=== PATIENT | female | born 1960 | race Caucasian/White ===

== ENCOUNTER 2020-06-19 10:05 | Emergency (ER) | payer MEDICARE, MEDICAID, SELFPAY ==
[2020-06-19 11:03] VITALS: BP 182/84; PULSE 83; RESP 17; TEMP 36.4; O2SAT 96; BMI 30.2
--- NOTE | 2020-06-19 11:10 | ECG_ITS ---
Test Reason : EDEMA Blood Pressure : / mmHG Vent. Rate : 077 BPM Atrial Rate : 077 BPM P-R Int : 152 ms QRS Dur : 090 ms QT Int : 392 ms P-R-T Axes : 043 -16 001 degrees QTc Int : 443 ms Normal sinus rhythm Possible Left atrial enlargement Left axis deviation Borderline ECG No previous ECGs available Referred By: Chasity Hancock Electronically Signed By:LINDA BOOGIE MD
--- NOTE | 2020-06-19 11:12 | ED_ITS ---
HPI - General Adult General Chief complaint: General Medical Stated complaint: BOTH FEET SWELLING Time Seen by Provider: 06/19/20 10:34 Source: patient Mode of arrival: ambulatory Limitations: no limitations History of Present Illness HPI narrative: 60 yo female with past medical history of HTN, High cholestorol, DM, GERD here with bilateral lower extremity Swelling X1 week. the patient denies any history of this same however when looking at her medication reconciliation she is on Aldactone 25 mg daily. She denies any fevers or chills or redness or pain in lower extremities. No recent travel or history of DVT. She has had some shortness of breath with exertion for the last few days and last evening while lying down she had a single episode of left-sided chest pain which lasted several minutes and resolved on its own. This occurred at rest and was not associated with any exertion, diaphoresis, nausea, vomiting. The patient does have a dry cough which she tells me is chronic for her. She has not tried any compression stockings or elevation. Onset (ago): week(s) Radiation: non-radiation Relieving factors: none Exacerbating factors: none Associated symptoms: denies other symptoms Related Data Allergies Allergy/AdvReac Type Severity Reaction Status Date / Time No Known Allergies Allergy Verified 06/19/20 11:06 [No Known Allergies*] Review of Systems Review of Systems: Yes all other systems are reviewed and are negative Constitutional: Constitutional: Reports no additional constitutional complaints, Denies body ache(s), Denies chills, Denies fever(s), Denies headache(s) and Denies weakness Eyes: Eyes: Reports no additional eye complaints and Denies change in vision ENT: Reports system reviewed and no additional complaints, except as docum ented, Denies dizziness, Denies headache(s), Denies nasal congestion, Denies nasal discharge and Denies neck pain Cardiovascular: Cardiovascular: Reports no additional cardiovascular complaints, Denies chest pain, Reports chest pain at rest, Denies chest pain with activity, Reports leg edema, Denies dyspnea and Reports dyspnea on exertion Respiratory: Respiratory: Reports no additional respiratory complaints, Denies cough, Denies dyspnea and Reports dyspnea on exertion Gastrointestinal: Gastrointestinal: Reports no additional gastrointestinal complaints, Denies abdominal pain, Denies diarrhea, Denies nausea and Denies vomiting Genitourinary: Genitourinary: Reports no additional female genitourinary complaints and Denies urinary incontinence Musculoskeletal: Musculoskeletal: Reports no additional musculoskeletal complaints, Denies back pain, Denies arthralgias, Denies joint swelling, Denies neck pain, Denies numbness and Denies tingling Integumentary/Breasts: Skin/Breast: Reports system reviewed and no additional complaints, except as docu and Denies rash Neurologic: Reports system reviewed and no additional complaints, except as documented, Denies Abnormal speech present, Denies dizziness, Denies headache(s), Denies numbness, Denies tingling and Denies weakness [facility] Past Medical History Attestation statement: The following information was validated with the patient. Source: old records reviewed, obtained from family and nursing notes reviewed Medical History (Updated 06/19/20 @ 12:48 by Chasity Hancock NP) Diabetes GERD (gastroesophageal reflux disease) High blood pressure High cholesterol Stroke Social History Social History Alcohol intake: unknown Smoking Status: Unknown if ever smoked Use of substances other than those prescribed or required for medical reasons: Unknown Advance Directives: No Advance Directives Information Provided: Yes Physical Exam Vital Signs: Vital Signs: Vital Signs Temp Pulse Resp BP Pulse Ox 06/19/20 14:00 98.9 F 78 16 178/79 H 98 06/19/20 11:03 97.5 F 83 17 182/84 H 96 Body Mass Index 30.2 Const: General: cooperative, healthy appearing, comfortable and no acute distress Orientation/consciousness: patient oriented x3 Limitations: no limitations HENMT: Head: Yes normal to inspection Ears: hearing grossly normal bilat erally General nose exam: Normal external nose present Face and sinus: Yes normal facial exam Mouth: Normal oral and palatal mucosa present Throat: Yes posterior oropharynx normal Eyes: General: appearance normal, both eyes and all related structures Pupils: Equal, round and reactive pupils present Neck: Neck: Yes normal visual inspection Chest: Chest palpation & inspection: normal inspection of the chest Resp: Effort & Inspection: normal respiratory effort Auscultation: clear to auscultation bilaterally Cardio: Rate: regular rate Rhythm: regular rhythm Peripheral pulses: Peripheral pulses 2+ throughout GI: Inspection: Yes normal to inspection Palpation (GI): Soft to palpation and nontender Auscultation: normal bowel sounds Back/Spine/Pelvis: Thoracic/Lumbar Spine: thoracic and lumbar spine normal to inspection Skin: General skin exam: no rashes or lesions noted Neuro: General: patient oriented x3, no focal motor deficits and normal s ensation to monofilament Cranial nerves: Yes Equal, round and reactive pupils present Cognition (Neuro): normal cognition Speech: No Abnormal speech present Gait exam (Neuro): Normal gait present Motor exam (neuro): 5/5 motor strength present throughout Extrem: Other: Patient has bilateral lower extremity swelling which is 2 plus and pitting and extends to the mid calf. There is no erythema or tenderness on exam. Palpable pulses distally. General: Yes normal to inspection Course Course Course Narrative: Patient is here with lower extremity swelling for the last 1 week. She has had some shortness of breath with exertion and had a single episode of chest pain last evening which was nonexertional. On arrival the patient does have bilateral lower extremity swelling which is pitting. She will need labs including BNP and troponin. Will check chest x-ray, EKG and bilateral lower extremity ultrasound. 1430- Troponin x2 negative. All other labs unremarkable including BNP. Renal function at baseline. Chest x-ray, EKG unremarkable. Ultrasound negative for DVT. Likely chronic venous stasis. Recommend patient use compression stockings and elevate lower extremities he continue using her Aldactone home. Close follow-up with primary care doctor. Reviewed worrisome signs and symptoms and when to return to the emergency department. Comfortable discharge home. Medical Decision Making MDM Narrative Medical decision making narrative: Considered CHF, DVT, chronic venous stasis, hypoalbunimemia, ACS 1245- Low concern for CHF with unremarkable chest x-ray and negative BNP. Low concern for DVT with negative ultrasound. Low concern for underlying liver disease with unremarkable LFTs including albumin. Low concern for ACS with unremarkable EKG, atypical chest pain greater than 12 hours and 2 negative troponins. More likely chronic venous stasis. Medical Records Medical records reviewed: Yes I reviewed the patient's medical records. Lab Data Lab results reviewed: Yes I reviewed the patient's lab results. Result diagrams: 06/19/20 11:36 06/19/20 11:37 Labs: Lab Results 06/19/20 06/19/20 06/19/20 Range/Units 11:36 11:37 11:37 WBC 6.8 (4.8-10.8) X10*3/uL RBC 3.49 L (4.20-5.50) X10*6/uL Hgb 10.1 L (12.0-16.0) g/dl Hct 31.5 L (37-47) % MCV 90.3 (80-98) fL MCH 28.9 (27.0-33.0) pg MCHC 32.1 (31.0-35.0) g/dl RDW 14.2 (11.0-16.0) % Plt Count 282 (160-400) X10*3/uL MPV 10.4 (9.4-12.3) fL Immature Gran % (Auto) 0.3 (0.0-0.4) % Neut % (Auto) 65.9 (45-73) % Lymph % (Auto) 25.1 (20-40) % [place] % (Auto) 6.5 (2-11) % Eos % (Auto) 1.8 (0-4) % Baso % (Auto) 0.4 (0-2) % Lymph # (Auto) 1.7 (1.2-4.9) X10*3/uL [place] # (Auto) 0.4 (0.1-1.2) X10*3/uL Eos # (Auto) 0.1 (0.0-0.4) X10*3/uL Baso # (Auto) 0.0 (0.0-0.2) X10*3/uL Abs Immat Gran (auto) 0.02 (0.00-0.03) X10*3/uL Absolute Neuts (auto) 4.5 (2.0-8.3) X10*3/uL Absolute Nucleated RBC 0.000 (0.0-0.012) X10*3/uL Nucleated RBC % (auto) 0.0 (0.0-0.2) /100WBC PT 11.5 (10.8-13.0) SEC INR 1.0 (0.9-1.1) Sodium 134 L (135-145) mmol/L Potassium 4.8 (3.3-5.1) mmol/l Chloride 106 (96-108) mmol/L Carbon Dioxide 20 L (22-29) mmol/L Anion Gap 13 (12-20) BUN 36 H (9-16) mg/dL Creatinine 1.57 H (0.5-1.4) mg/dL Estim Creat Clear Calc 33.8 Estimated GFR 33 Random Glucose 206 H (60-115) mg/dL Calcium 9.3 (8.4-10.2) mg/dL Magnesium 1.9 (1.6-2.6) mg/dL Total Bilirubin 0.3 (0.0-1.0) mg/dL Direct Bilirubin 0.2 (0.0-0.5) mg/dL AST 20 (5-31) U/L ALT 16 (0-31) U/L Alkaline Phosphatase 71 (39-117) U/L Troponin I High Sens (<3.5-17.0) ng/L B-Natriuretic Peptide (<100) pg/mL Total Protein 8.8 H (6.5-8.0) g/dL Albumin 3.8 (3.5-5.0) g/dL 06/19/20 06/19/20 Range/Units 11:37 14:31 WBC (4.8-10.8) X10*3/uL RBC (4.20-5.50) X10*6/uL Hgb (12.0-16.0) g/dl Hct (37-47) % MCV (80-98) fL MCH (27.0-33.0) pg MCHC (31.0-35.0) g/dl RDW (11.0-16.0) % Plt Count (160-400) X10*3/uL MPV (9.4-12.3) fL Immature Gran % (Auto) (0.0-0.4) % Neut % (Auto) (45-73) % Lymph % (Auto) (20-40) % [place] % (Auto) (2-11) % Eos % (Auto) (0-4) % Baso % (Auto) (0-2) % Lymph # (Auto) (1.2-4.9) X10*3/uL [place] # (Auto) (0.1-1.2) X10*3/uL Eos # (Auto) (0.0-0.4) X10*3/uL Baso # (Auto) (0.0-0.2) X10*3/uL Abs Immat Gran (auto) (0.00-0.03) X10*3/uL Absolute Neuts (auto) (2.0-8.3) X10*3/uL Absolute Nucleated RBC (0.0-0.012) X10*3/uL Nucleated RBC % (auto) (0.0-0.2) /100WBC PT (10.8-13.0) SEC INR (0.9-1.1) Sodium (135-145) mmol/L Potassium (3.3-5.1) mmol/l Chloride (96-108) mmol/L Carbon Dioxide (22-29) mmol/L Anion Gap (12-20) BUN (9-16) mg/dL Creatinine (0.5-1.4) mg/dL Estim Creat Clear Calc Estimated GFR Random Glucose (60-115) mg/dL Calcium (8.4-10.2) mg/dL Magnesium (1.6-2.6) mg/dL Total Bilirubin (0.0-1.0) mg/dL Direct Bilirubin (0.0-0.5) mg/dL AST (5-31) U/L ALT (0-31) U/L Alkaline Phosphatase (39-117) U/L Troponin I High Sens 4.2 < 3.5 (<3.5-17.0) ng/L B-Natriuretic Peptide 94 (<100) pg/mL Total Protein (6.5-8.0) g/dL Albumin (3.5-5.0) g/dL Imaging Data Chest x-ray: Attestation: I personally reviewed and interpreted this imaging study as follows: My impression: unremarkable Radiologist's impression: EXAMINATION: XR CHEST CLINICAL INFORMATION: Chest pain and SOB. COMPARISON: None TECHNIQUE: 2 views of the chest were obtained. FINDINGS: The lungs are well-expanded with atelectatic changes in the lingula. Rest the lungs are clear. The heart size and pulmonary vascularity is normal. There is mild spondylosis dorsal spine. No lytic process seen. XR/XR chest 2V IMPRESSION: Atelectatic changes in the lingula. No acute process seen. venous US: Attestation: I personally reviewed and interpreted this imaging study as follows: My impression: negative for DVT Radiologist's impression: EXAMINATION: US VENOUS ULTRASOUND WITH DOPPLER LOWER EXTREMITY, BILATERAL CLINICAL INFORMATION: Bilateral lower extremity swelling; question deep venous thrombosis. COMPARISON: None TECHNIQUE: Ultrasound of the deep veins is performed from the hip to the calf with compression sonography and color and pulse Doppler assessment. Spectral analysis with color-flow imaging is performed. FINDINGS: RIGHT: There is normal venous compression and respiratory variation and augmented flow. The visualized common femoral vein proximal greater saphenous vein, femoral vein, profunda femoral vein, popliteal vein, and the trifurcation region shows no evidence of deep venous thrombosis. There is no significant popliteal fossa cyst. LEFT: There is normal venous compression and respiratory variation and augmented flow. The visualized common femoral vein, proximal greater vein, femoral vein, profunda femoral vein, popliteal vein, and the trifurcation region shows no evidence of deep venous thrombosis. There is no significant popliteal fossa cyst. If the patient's symptoms persist, followup ultrasound in 5 days 7 days might be of value to exclude proximal propagation from a non-visualized calf vein. US/US venous duplex LE BI IMPRESSION: No DVT demonstrated in the bilateral lower extremity. ECG Data Attestation: I personally reviewed and interpreted this ECG as follows: Interpretation: NSR, Normal NC, Normal QRS, Normal ST stegment Discharge Plan Discharge Clinical Impression: Chronic venous stasis Patient Disposition: Home, Self-Care Instructions: Venous Insufficiency (DC) Additional Instructions: Elevated your extremities Wear your compression stocks every single day except when sleeping. Limit salt Continue all your normal medications Close follow-up with your primary care doctor as discussed Referrals: Gasper Helms MD [Primary Care Provider] - 2 days Interventions: ED Discharge Assessment Last Done: 06/19/20 15:35 Discharge Date/Time: 06/19/20 15:38
[2020-06-19 11:45] LABS: MANUAL DIFF FLAG NO
[2020-06-19 11:46] LABS: Basophils Percent Auto 0.4 % (0-2); Eosinophils Absolute Auto 0.1 X10*3/uL (0.0-0.4); Eosinophils Percent Auto 1.8 % (0-4); Hematocrit 31.5 % (37-47); Hemoglobin 10.1 g/dl (12.0-16.0); Imm Gran Abs Auto 0.02 X10*3/uL (0.00-0.03); Imm Gran Pct Auto 0.3 % (0.0-0.4); Lymphocytes Absolute Auto 1.7 X10*3/uL (1.2-4.9); Lymphocytes Percent Auto 25.1 % (20-40); Mean Corpuscular HGB Conc 32.1 g/dl (31.0-35.0); Mean Corpuscular Hemoglobin 28.9 pg (27.0-33.0); Mean Corpuscular Volume 90.3 fL (80-98); Mean Platelet Volume 10.4 fL (9.4-12.3); Monocytes Absolute Auto 0.4 X10*3/uL (0.1-1.2); Monocytes Percent Auto 6.5 % (2-11); Neutrophils Absolute Auto 4.5 X10*3/uL (2.0-8.3); Neutrophils Percent Auto 65.9 % (45-73); Platelet Count 282 X10*3/uL (160-400); Red Blood Count 3.49 X10*6/uL (4.20-5.50); Red Cell Distribution Width 14.2 % (11.0-16.0); White Blood Count 6.8 X10*3/uL (4.8-10.8)
[2020-06-19 11:58] LABS: Prothrombin Time 11.5 SEC (10.8-13.0)
[2020-06-19 12:17] LABS: Alanine Aminotransferase 16 U/L (0-31); Albumin Level 3.8 g/dL (3.5-5.0); Alkaline Phosphatase 71 U/L (39-117); Anion Gap 13 (12-20); Aspartate Amino Transferase 20 U/L (5-31); Bilirubin Direct 0.2 mg/dL (0.0-0.5); Bilirubin Total 0.3 mg/dL (0.0-1.0); Blood Urea Nitrogen 36 mg/dL (9-16); Calcium 9.3 mg/dL (8.4-10.2); Carbon Dioxide 20 mmol/L (22-29); Chloride 106 mmol/L (96-108); Creatinine Clr Calc Pharmacy 33.8; Estimated Glomerular Filt Rate 33; Glucose Random 206 mg/dL (60-115); Magnesium 1.9 mg/dL (1.6-2.6); Potassium 4.8 mmol/l (3.3-5.1); Sodium 134 mmol/L (135-145); Total Protein 8.8 g/dL (6.5-8.0)
[2020-06-19 12:22] LABS: B Type Natriuretic Peptide 94 pg/mL (<100); Troponin-I High Sensitivity 4.2 ng/L (<3.5-17.0)
[2020-06-19 14:00] VITALS: BP 178/79; PULSE 78; RESP 16; TEMP 37.2; O2SAT 98
[2020-06-19 15:31] LABS: Troponin-I High Sensitivity < 3.5 ng/L (<3.5-17.0)
== END 2020-06-19 15:38 | disposition home or self-care (01) ==
PROVIDERS: Nurse Practitioner Family; Emergency Provider Emergency Medicine; PCP Internal Medicine
DX: I87.8 Other specified disorders of veins (principal); R07.9 Chest pain, unspecified; R06.02 Shortness of breath; I10 Essential (primary) hypertension; E11.9 Type 2 diabetes mellitus without complications
CPT/HCPCS: 36415; 71046; 80048; 80076; 83735; 83880; 84484; 85025; 85610; 93005; 93970; 99284

== ENCOUNTER 2020-11-04 16:36 | Emergency (ER) | payer MEDICARE, MEDICAID, SELFPAY ==
[2020-11-04] VITALS (10 sets, daily range): BP systolic 165–197; BP diastolic 76–89; PULSE 71–90; RESP 12–18; TEMP 36.1–36.8; O2SAT 96–100
--- NOTE | ~2020-11-04 | XR_ITS ---
EXAMINATION: XR CHEST CLINICAL INFORMATION: Cough and congestion COMPARISON: Chest x-ray 06/19/2020 TECHNIQUE: 2 views of the chest were obtained. FINDINGS: Cardiac silhouette is normal in size. The lungs are well aerated. Similar subtle linear opacity of the left lung base is suspected to represent atelectasis. No lobar consolidation is present. No pleural effusion or pneumothorax. Mild degenerative changes of the spine. XR/XR chest 2V IMPRESSION: No acute pulmonary pathology.
[2020-11-04 17:11] LABS: Glucose, Whole Blood > 600 mg/dL (60-115)
[2020-11-04 17:19] LABS: MANUAL DIFF FLAG NO
[2020-11-04 17:20] LABS: Basophils Percent Auto 0.2 % (0-2); Eosinophils Percent Auto 0.5 % (0-4); Hematocrit 32.7 % (37-47); Hemoglobin 10.8 g/dl (12.0-16.0); Imm Gran Abs Auto 0.01 X10*3/uL (0.00-0.03); Imm Gran Pct Auto 0.2 % (0.0-0.4); Lymphocytes Absolute Auto 1.4 X10*3/uL (1.2-4.9); Lymphocytes Percent Auto 35.1 % (20-40); Mean Corpuscular Hemoglobin 29.2 pg (27.0-33.0); Mean Corpuscular Volume 88.4 fL (80-98); Mean Platelet Volume 12.2 fL (9.4-12.3); Monocytes Absolute Auto 0.3 X10*3/uL (0.1-1.2); Monocytes Percent Auto 6.2 % (2-11); Neutrophils Absolute Auto 2.3 X10*3/uL (2.0-8.3); Neutrophils Percent Auto 57.8 % (45-73); Platelet Count 273 X10*3/uL (160-400); Red Cell Distribution Width 13.4 % (11.0-16.0)
--- NOTE | 2020-11-04 17:39 | ED.GENADULT ---
HPI - General Adult General Chief complaint: General Medical Stated complaint: Hyperglycemia Time Seen by Provider: 11/04/20 17:25 Source: patient Mode of arrival: ambulatory Limitations: no limitations History of Present Illness HPI narrative: Patient is a 60-year-old female past medical history of type 2 diabetes, HTN, HLD and hx of prior stroke in 2019 who is complaining of high blood sugars. She states that her blood sugars are usually under good control but does admit that the last few days when she woke up and checked her blood sugar that has been elevated. Today when she got up, her glucometer said it was in the 500s. She also admits to increased urination and thirst and some chest pain yesterday which resolved. She also admits to a slight cough and congestion but denies any COVID contacts or fevers. She denies any headache, dizziness, nausea. vomiting or diarrhea. She states she has been eating her normal foods. Patient states she takes glipizide for her diabetes and did take it this morning, she takes 5 mg amlodipine for her hypertension and she did take it this morning however her blood pressure is currently quite elevated. She also states she took her cholesterol medication, simvastatin, last night. Related Data Allergies Allergy/AdvReac Type Severity Reaction Status Date / Time No Known Allergies Allergy Verified 06/19/20 11:06 [No Known Allergies*] Review of Systems Review of Systems: Yes all other systems are reviewed and are negative [facility] Past Medical History Medical History Diabetes GERD (gastroesophageal reflux disease) High blood pressure High cholesterol Stroke Social History Social History Alcohol intake: unknown Smoking Status: Never smoker Use of substances other than those prescribed or required for medical reasons: No Advance Directives: No Advance Directives Information Provided: Yes Physical Exam Vital Signs: Vital Signs: Last Vital Signs Temp 98.1 F 11/05/20 01:43 Pulse 90 11/05/20 01:57 Resp 17 11/05/20 01:43 BP 167/79 H 11/05/20 02:19 Pulse Ox 98 11/05/20 01:43 Body Mass Index 30.0 Const: General: cooperative, healthy appearing, comfortable and no acute distress Orientation/consciousness: patient oriented x3 Limitations: no limitations HENMT: Head: Yes normal to inspection Eyes: General: appearance normal, both eyes and all related structures Neck: Neck: Yes normal visual inspection, Yes full ROM and Yes supple Resp: Effort & Inspection: normal respiratory effort Auscultation: clear to auscultation bilaterally, no crackles, no rales, no rhonchi and no wheezes Cardio: Rate: regular rate Rhythm: regular rhythm Heart sounds: normal S1 and S2 GI: Inspection: Yes obesity Palpation (GI): Soft to palpation and nontender Auscultation: normal bowel sounds Neuro: General: patient oriented x3 Extrem: General: Yes pedal edema (1+ pitting bilaterally) Course Course Course Narrative: Patient is a 60-year-old female past medical history of type 2 diabetes, HTN, HLD and hx of prior stroke who is complaining of high blood sugars. She states that her blood sugars are usually under good control but does admit that the last few days when she woke up and checked her blood sugar that has been elevated. Patient also admits to a cough and congestion, will get labs, acetone, COVID swab and CXR. Labs reveal low white blood cell count at 4.0, low at 125, BUN 41, creatinine 2.67, glucose 778 and calcium 8.3, acetone negative, UA negative, COVID negative, RSV negative, flu a and B negative. Will give patient 2 L LR and reassess chemistry panel, while monitoring glucose. Patient also hypertensive, will give antihypertensives and monitor. Patient's blood sugar is still in the 400s, will give 1 more liter of LR, another 5U insulin and reassess, likely send home as pt has CKD. Second set of labs revealed a KI has resolving and is almost at patient's baseline of BUN 30 and Cr 1.57. Patient is hypertensive in the 200 systolic will give 1 more dose of 10 mg labetalol. Patient's blood sugar and blood pressure have both returned to an acceptable amounts, will discharge. Medical Decision Making Lab Data Result diagrams: 11/04/20 17:10 11/04/20 23:25 Labs: Lab Results 11/04/20 11/04/20 11/04/20 Range/Units 17:03 17:10 17:10 WBC 4.0 L (4.8-10.8) X10*3/uL RBC 3.70 L (4.20-5.50) X10*6/uL Hgb 10.8 L (12.0-16.0) g/dl Hct 32.7 L (37-47) % MCV 88.4 (80-98) fL MCH 29.2 (27.0-33.0) pg MCHC 33.0 (31.0-35.0) g/dl RDW 13.4 (11.0-16.0) % Plt Count 273 (160-400) X10*3/uL MPV 12.2 (9.4-12.3) fL Immature Gran % (Auto) 0.2 (0.0-0.4) % Neut % (Auto) 57.8 (45-73) % Lymph % (Auto) 35.1 (20-40) % [place] % (Auto) 6.2 (2-11) % Eos % (Auto) 0.5 (0-4) % Baso % (Auto) 0.2 (0-2) % Lymph # (Auto) 1.4 (1.2-4.9) X10*3/uL [place] # (Auto) 0.3 (0.1-1.2) X10*3/uL Eos # (Auto) 0.0 (0.0-0.4) X10*3/uL Baso # (Auto) 0.0 (0.0-0.2) X10*3/uL Abs Immat Gran (auto) 0.01 (0.00-0.03) X10*3/uL Absolute Neuts (auto) 2.3 (2.0-8.3) X10*3/uL Absolute Nucleated RBC 0.000 (0.0-0.012) X10*3/uL Nucleated RBC % (auto) 0.0 (0.0-0.2) /100WBC Sodium 125 L (135-145) mmol/L Potassium 4.9 (3.3-5.1) mmol/L Chloride 94 L (96-108) mmol/L Carbon Dioxide 23 (22-29) mmol/L Anion Gap 13 (12-20) BUN 41 H (9-16) mg/dL Creatinine 2.67 H (0.5-1.4) mg/dL Estim Creat Clear Calc 19.8 Estimated GFR 18 POC Glucose > 600 H* (60-115) mg/dL Random Glucose 778 H* (60-115) mg/dL Calcium 8.3 L D (8.4-10.2) mg/dL Urine Color Urine Appearance Urine pH (5.0-8.0) Ur Specific [place] (1.005-1.025) Urine Protein (NEG-TRACE) MG/DL Urine Glucose (UA) (NEG) MG/DL Urine Ketones (NEG) MG/DL Urine Blood (NEG) Urine Nitrite (NEG) Ur Leukocyte Esterase (NEG) Urine RBC (0) /HPF Urine WBC (0-4) /HPF Ur Squamous Epith Cells /LPF Urine Bacteria /LPF Acetone, Qual (Negative) Coronavirus (PCR) (Negative) Influenza Type A (PCR) (Negative) Influenza Type B (PCR) (Negative) RSV RNA Qual (PCR) (Negative) 11/04/20 11/04/20 11/04/20 Range/Units 17:37 17:46 20:18 WBC (4.8-10.8) X10*3/uL RBC (4.20-5.50) X10*6/uL Hgb (12.0-16.0) g/dl Hct (37-47) % MCV (80-98) fL MCH (27.0-33.0) pg MCHC (31.0-35.0) g/dl RDW (11.0-16.0) % Plt Count (160-400) X10*3/uL MPV (9.4-12.3) fL Immature Gran % (Auto) (0.0-0.4) % Neut % (Auto) (45-73) % Lymph % (Auto) (20-40) % [place] % (Auto) (2-11) % Eos % (Auto) (0-4) % Baso % (Auto) (0-2) % Lymph # (Auto) (1.2-4.9) X10*3/uL [place] # (Auto) (0.1-1.2) X10*3/uL Eos # (Auto) (0.0-0.4) X10*3/uL Baso # (Auto) (0.0-0.2) X10*3/uL Abs Immat Gran (auto) (0.00-0.03) X10*3/uL Absolute Neuts (auto) (2.0-8.3) X10*3/uL Absolute Nucleated RBC (0.0-0.012) X10*3/uL Nucleated RBC % (auto) (0.0-0.2) /100WBC Sodium (135-145) mmol/L Potassium (3.3-5.1) mmol/L Chloride (96-108) mmol/L Carbon Dioxide (22-29) mmol/L Anion Gap (12-20) BUN (9-16) mg/dL Creatinine (0.5-1.4) mg/dL Estim Creat Clear Calc Estimated GFR POC Glucose (60-115) mg/dL Random Glucose (60-115) mg/dL Calcium (8.4-10.2) mg/dL Urine Color YELLOW Urine Appearance CLEAR Urine pH 6.5 (5.0-8.0) Ur Specific [place] 1.015 (1.005-1.025) Urine Protein 2+ H (NEG-TRACE) MG/DL Urine Glucose (UA) >=1000 H (NEG) MG/DL Urine Ketones NEG (NEG) MG/DL Urine Blood TRACE (NEG) Urine Nitrite NEG (NEG) Ur Leukocyte Esterase NEG (NEG) Urine RBC 0 (0) /HPF Urine WBC 0 (0-4) /HPF Ur Squamous Epith Cells NONE /LPF Urine Bacteria TRACE /LPF Acetone, Qual Negative (Negative) Coronavirus (PCR) NEGATIVE (Negative) Influenza Type A (PCR) NEGATIVE (Negative) Influenza Type B (PCR) NEGATIVE (Negative) RSV RNA Qual (PCR) NEGATIVE (Negative) 11/04/20 11/04/20 11/04/20 Range/Units 20:25 21:22 22:59 WBC (4.8-10.8) X10*3/uL RBC (4.20-5.50) X10*6/uL Hgb (12.0-16.0) g/dl Hct (37-47) % MCV (80-98) fL MCH (27.0-33.0) pg MCHC (31.0-35.0) g/dl RDW (11.0-16.0) % Plt Count (160-400) X10*3/uL MPV (9.4-12.3) fL Immature Gran % (Auto) (0.0-0.4) % Neut % (Auto) (45-73) % Lymph % (Auto) (20-40) % [place] % (Auto) (2-11) % Eos % (Auto) (0-4) % Baso % (Auto) (0-2) % Lymph # (Auto) (1.2-4.9) X10*3/uL [place] # (Auto) (0.1-1.2) X10*3/uL Eos # (Auto) (0.0-0.4) X10*3/uL Baso # (Auto) (0.0-0.2) X10*3/uL Abs Immat Gran (auto) (0.00-0.03) X10*3/uL Absolute Neuts (auto) (2.0-8.3) X10*3/uL Absolute Nucleated RBC (0.0-0.012) X10*3/uL Nucleated RBC % (auto) (0.0-0.2) /100WBC Sodium (135-145) mmol/L Potassium (3.3-5.1) mmol/L Chloride (96-108) mmol/L Carbon Dioxide (22-29) mmol/L Anion Gap (12-20) BUN (9-16) mg/dL Creatinine (0.5-1.4) mg/dL Estim Creat Clear Calc Estimated GFR POC Glucose 505 H* 460 H* 406 H* (60-115) mg/dL Random Glucose (60-115) mg/dL Calcium (8.4-10.2) mg/dL Urine Color Urine Appearance Urine pH (5.0-8.0) Ur Specific [place] (1.005-1.025) Urine Protein (NEG-TRACE) MG/DL Urine Glucose (UA) (NEG) MG/DL Urine Ketones (NEG) MG/DL Urine Blood (NEG) Urine Nitrite (NEG) Ur Leukocyte Esterase (NEG) Urine RBC (0) /HPF Urine WBC (0-4) /HPF Ur Squamous Epith Cells /LPF Urine Bacteria /LPF Acetone, Qual (Negative) Coronavirus (PCR) (Negative) Influenza Type A (PCR) (Negative) Influenza Type B (PCR) (Negative) RSV RNA Qual (PCR) (Negative) 11/04/20 11/05/20 Range/Units 23:25 01:11 WBC (4.8-10.8) X10*3/uL RBC (4.20-5.50) X10*6/uL Hgb (12.0-16.0) g/dl Hct (37-47) % MCV (80-98) fL MCH (27.0-33.0) pg MCHC (31.0-35.0) g/dl RDW (11.0-16.0) % Plt Count (160-400) X10*3/uL MPV (9.4-12.3) fL Immature Gran % (Auto) (0.0-0.4) % Neut % (Auto) (45-73) % Lymph % (Auto) (20-40) % [place] % (Auto) (2-11) % Eos % (Auto) (0-4) % Baso % (Auto) (0-2) % Lymph # (Auto) (1.2-4.9) X10*3/uL [place] # (Auto) (0.1-1.2) X10*3/uL Eos # (Auto) (0.0-0.4) X10*3/uL Baso # (Auto) (0.0-0.2) X10*3/uL Abs Immat Gran (auto) (0.00-0.03) X10*3/uL Absolute Neuts (auto) (2.0-8.3) X10*3/uL Absolute Nucleated RBC (0.0-0.012) X10*3/uL Nucleated RBC % (auto) (0.0-0.2) /100WBC Sodium 133 L (135-145) mmol/L Potassium 4.3 (3.3-5.1) mmol/L Chloride 101 (96-108) mmol/L Carbon Dioxide 26 (22-29) mmol/L Anion Gap 10 L (12-20) BUN 34 H (9-16) mg/dL Creatinine 2.15 H (0.5-1.4) mg/dL Estim Creat Clear Calc 24.6 Estimated GFR 23 POC Glucose 338 H (60-115) mg/dL Random Glucose 440 H* (60-115) mg/dL Calcium 8.5 (8.4-10.2) mg/dL Urine Color Urine Appearance Urine pH (5.0-8.0) Ur Specific [place] (1.005-1.025) Urine Protein (NEG-TRACE) MG/DL Urine Glucose (UA) (NEG) MG/DL Urine Ketones (NEG) MG/DL Urine Blood (NEG) Urine Nitrite (NEG) Ur Leukocyte Esterase (NEG) Urine RBC (0) /HPF Urine WBC (0-4) /HPF Ur Squamous Epith Cells /LPF Urine Bacteria /LPF Acetone, Qual (Negative) Coronavirus (PCR) (Negative) Influenza Type A (PCR) (Negative) Influenza Type B (PCR) (Negative) RSV RNA Qual (PCR) (Negative) Discharge Plan Discharge Clinical Impression: Acute hyperglycemia Hypertension Qualifiers: Hypertension type: secondary to other renal disorders Qualified Code(s): I15.1 - Hypertension secondary to other renal disorders Patient Disposition: Home, Self-Care Instructions: Diabetic Hyperglycemia (ED), Hypertension and Diabetes (ED) Additional Instructions: As your blood sugars and your blood pressure are both running high, I would recommend following up with your primary care doctor AMINATA because you might need to change in her medications. It is very important to have well-controlled blood sugars and blood pressures for your long-term health. Elevated blood pressures put you at a higher risk for stroke.
[2020-11-04 18:09] LABS: Anion Gap 13 (12-20); Blood Urea Nitrogen 41 mg/dL (9-16); Calcium 8.3 mg/dL (8.4-10.2); Carbon Dioxide 23 mmol/L (22-29); Chloride 94 mmol/L (96-108); Creatinine Clr Calc Pharmacy 19.8; Estimated Glomerular Filt Rate 18; Potassium 4.9 mmol/L (3.3-5.1); Sodium 125 mmol/L (135-145)
[2020-11-04 18:09] LABS: Acetone, serum QL Negative (Negative)
[2020-11-04] MEDS: Lactated Ringers 1,000 ML 999 ML IV (18:11)
[2020-11-04] MEDS: hydrALAZINE HCl 20 MG/ML VIAL 5 MG IVPUSH ×2 (18:11→19:24)
[2020-11-04 18:25] LABS: Glucose Random 778 mg/dL (60-115)
[2020-11-04 18:35] LABS: Influenza A PCR NEGATIVE (Negative); Influenza B PCR NEGATIVE (Negative); Resp Syncy Virus RNA Qual PCR NEGATIVE (Negative); SARS COV2 PCR INHOUSE NEGATIVE (Negative)
[2020-11-04 20:30] LABS: Glucose, Whole Blood 505 mg/dL (60-115)
[2020-11-04 20:40] LABS: Glucose Urine UA >=1000 MG/DL (NEG); Leukocyte Esterase Urine NEG (NEG); Nitrite Urine NEG (NEG); PH 6.5 (5.0-8.0); Specific Gravity - Urine 1.015 (1.005-1.025); Urine Blood TRACE (NEG); Urine Ketones NEG (NEG); Urine Protein 2+ MG/DL (NEG-TRACE)
[2020-11-04 20:41] LABS: Appearance Urine CLEAR; Color Urine YELLOW
[2020-11-04 20:47] LABS: Bacteria Urine TRACE /LPF; RBC Urine 0 /HPF (0); WBC Urine 0 /HPF (0-4)
[2020-11-04 21:27] LABS: Glucose, Whole Blood 460 mg/dL (60-115)
[2020-11-04] MEDS: Lactated Ringers 1,000 ML 999 ML IVCONT (21:34)
--- NOTE | 2020-11-04 21:35 | PC.NURSE ---
#20 IN L AC, POSITIONAL BUT PATENT. GTT SLOWER TO INFUSE. BPS REMAIN ELEVATE, PT REMAINS ASYMPTOMATIC. PA AWARE
[2020-11-04] MEDS: Labetalol HCL 100 MG/20 ML VIAL 10 MG IVPUSH (21:46)
[2020-11-04 23:03] LABS: Glucose, Whole Blood 406 mg/dL (60-115)
[2020-11-05] VITALS: BP 176/84; PULSE 88; RESP 14; O2SAT 98
[2020-11-05 00:06] LABS: Anion Gap 10 (12-20); Blood Urea Nitrogen 34 mg/dL (9-16); Calcium 8.5 mg/dL (8.4-10.2); Carbon Dioxide 26 mmol/L (22-29); Chloride 101 mmol/L (96-108); Creatinine Clr Calc Pharmacy 24.6; Estimated Glomerular Filt Rate 23; Glucose Random 440 mg/dL (60-115); Potassium 4.3 mmol/L (3.3-5.1); Sodium 133 mmol/L (135-145)
[2020-11-05] MEDS: Insulin Regular, Human 100 UNIT/ML 3 ML VIAL SUBCUT (00:14)
[2020-11-05] MEDS: Lactated Ringers 1,000 ML 999 ML IV (01:15)
[2020-11-05 01:16] LABS: Glucose, Whole Blood 338 mg/dL (60-115)
[2020-11-05 01:43] VITALS: BP 200/94; PULSE 83; RESP 17; TEMP 36.7; O2SAT 98
[2020-11-05 01:57] VITALS: BP 183/78; PULSE 90
[2020-11-05] MEDS: Labetalol HCL 100 MG/20 ML VIAL 10 MG IVPUSH (01:57)
[2020-11-05 02:19] VITALS: BP 167/79
[2020-11-05 02:24] LABS: Glucose, Whole Blood 263 mg/dL (60-115)
[2020-11-05 08:31] LABS: Glucose, Whole Blood > 600 mg/dL (60-115)
== END 2020-11-05 02:35 | disposition home or self-care (01) ==
PROVIDERS: Physician Assistant; Emergency Provider Emergency Medicine; PCP Internal Medicine
DX: E11.65 Type 2 diabetes mellitus with hyperglycemia (principal); I12.9 Hypertensive chronic kidney disease with stage 1 through stage 4 chronic kidney disease, or unspecified chronic kidney disease; E11.22 Type 2 diabetes mellitus with diabetic chronic kidney disease; N18.9 Chronic kidney disease, unspecified; Z20.822 Contact with and (suspected) exposure to COVID-19; Z86.73 Personal history of transient ischemic attack (TIA), and cerebral infarction without residual deficits
CPT/HCPCS: 0241U; 36415; 71046; 80048; 81001; 82009; 82947; 85025; 96361; 96372; 96374; 96375; 96376; 99285

== ENCOUNTER 2020-11-11 12:22 | Inpatient (IN) | payer MEDICARE, MEDICAID, SELFPAY ==
[2020-11-11] VITALS (7 sets, daily range): BP systolic 133–186; BP diastolic 77–96; PULSE 74–85; RESP 16–20; TEMP 36.3–37; O2SAT 96–99; BMI 30.2
--- NOTE | 2020-11-11 12:34 | ED_ITS ---
HPI - General Adult General Chief complaint: General Medical Stated complaint: high blood sugar Time Seen by Provider: 11/11/20 12:34 Source: patient Mode of arrival: ambulatory Limitations: no limitations History of Present Illness HPI narrative: Patient is 60 years old diabetic hypertension used to be on metformin which was stopped a month ago because of elevated creatinine is on glipizide 5 mg twice daily which was increased by PCP few weeks ago to 10 mg twice daily is still patient is running blood sugar high more than 400 today was seen by PCP blood sugar of 410 and sent the patient here otherwise patient feels fine no nausea no vomiting no abdominal pain patient was seen here on 11/04 with blood sugar of 772 and discharged home on no change in medications Onset (ago): week(s) Related Data Home Medications Medication Instructions Recorded Confirmed amlodipine 1 tab PO DAILY 11/11/20 11/11/20 clonidine HCl 1 tab PO BID 11/11/20 11/11/20 donepezil 1 tab PO BEDTIME 11/11/20 11/11/20 glipizide 1 tab PO BID 11/11/20 11/11/20 metformin 1 tab PO BID 11/11/20 11/11/20 metoprolol succinate 1 tab PO DAILY 11/11/20 11/11/20 omeprazole 1 cap PO DAILY 11/11/20 11/11/20 quetiapine 0.5 tab PO BEDTIME 11/11/20 11/11/20 simvastatin 1 tab PO BEDTIME 11/11/20 11/11/20 Allergies Allergy/AdvReac Type Severity Reaction Status Date / Time Seasonal Allergies AdvReac Runny Nose Verified 11/11/20 12:31 Review of Systems Review of Systems: Constitutional : No Weight loss, No Fever, No Chills ENT/Mouth : No sore throat, No Rhinorrhea Eyes: No Eye Pain, No Swelling Cardiovascular : No Chest Pain, no palpitations Respiratory : No Cough, No Sputum, no shortness of breath Gastrointestinal : no Nausea, No Vomiting, No Diarrhea, No abdominal Pain, no black stools Genitourinary : No Dysuria, No Urinary Frequency Musculoskeletal : No joint pain, No Myalgias, No Joint Swelling Skin : No Skin Lesions, No rash Neuro : No Weakness, No Numbness, No Dizziness, No Headache Psych : No Anxiety/Panic, No Depression Heme/Lymph: No Bruising, No Lymphadenopathy Endocrine : No Polyuria, No Polydipsia All other systems reviewed and are negative [facility] Past Medical History Medical History (Updated 11/11/20 @ 16:09 by Isidro Ruelas MD) CKD (chronic kidney disease) Diabetes GERD (gastroesophageal reflux disease) High blood pressure High cholesterol Stroke Surgical History (Updated 11/11/20 @ 16:10 by Isidro Ruelas MD) History of appendectomy Family History Family History (Updated 11/11/20 @ 16:10 by Isidro Ruelas MD) Other Diabetes mellitus Social History Social History Alcohol intake: unknown Smoking Status: Never smoker Smoked in Last 30 Days: No Use of substances other than those prescribed or required for medical reasons: No Advance Directives: Yes Advance Directives Information Provided: Yes Advance Directives on File: No Physical Exam Vital Signs: Vital Signs: Last Vital Signs Temp 98.0 F 11/11/20 12:29 Pulse 74 11/11/20 16:25 Resp 18 11/11/20 15:03 BP 186/92 H 11/11/20 16:25 Pulse Ox 98 11/11/20 15:03 Body Mass Index 30.2 Appearance: Alert. Oriented X3. No acute distress. Eyes: Pupils equal, round and reactive to light. ENT: Pharynx normal. Neck: Normal inspection. Neck supple. CVS: Normal heart rate and rhythm. Pulses normal. Respiratory: No respiratory distress. Breath sounds normal. Abdomen: Soft and nontender. Bowel sounds are present, no mass palpable, no CVA tenderness Skin: Skin warm and dry. Normal skin color. Normal skin turgor. Extremities: No lower extremity edema. Neuro: Oriented X 3. No motor deficit. No sensory deficit. Medical Decision Making MDM Narrative Medical decision making narrative: Patient type 2 diabetic with hyperglycemia not on insulin nonketotic. Patient received IV fluids blood sugar dropped from 566-357 also patient has creatinine of 2.47 which has increased from her baseline 1.5. Will admit patient for IV hydration and insulin treatment unc ontrolled diabetes Lab Data Lab results reviewed: Yes I reviewed the patient's lab results. Result diagrams: 11/11/20 13:28 11/11/20 13:28 Labs: Lab Results 03/17/21 03/17/21 03/17/21 Range/Units 13:28 13:28 13:28 WBC 5.7 (4.8-10.8) X10*3/uL RBC 3.94 L (4.20-5.50) X10*6/uL Hgb 11.4 L (12.0-16.0) g/dl Hct 34.4 L (37-47) % MCV 87.3 (80-98) fL MCH 28.9 (27.0-33.0) pg MCHC 33.1 (31.0-35.0) g/dl RDW 13.2 (11.0-16.0) % Plt Count 232 (160-400) X10*3/uL MPV 12.0 (9.4-12.3) fL Immature Gran % (Auto) 0.4 (0.0-0.4) % Neut % (Auto) 68.4 (45-73) % Lymph % (Auto) 24.4 (20-40) % [place] % (Auto) 5.5 (2-11) % Eos % (Auto) 0.9 (0-4) % Baso % (Auto) 0.4 (0-2) % Lymph # (Auto) 1.4 (1.2-4.9) X10*3/uL [place] # (Auto) 0.3 (0.1-1.2) X10*3/uL Eos # (Auto) 0.1 (0.0-0.4) X10*3/uL Baso # (Auto) 0.0 (0.0-0.2) X10*3/uL Abs Immat Gran (auto) 0.02 (0.00-0.03) X10*3/uL Absolute Neuts (auto) 3.9 (2.0-8.3) X10*3/uL Absolute Nucleated RBC 0.000 (0.0-0.012) X10*3/uL Nucleated RBC % (auto) 0.0 (0.0-0.2) /100WBC Sodium 132 L (135-145) mmol/L Potassium 4.6 (3.3-5.1) mmol/L Chloride 99 (96-108) mmol/L Carbon Dioxide 27 (22-29) mmol/L Anion Gap 11 L (12-20) BUN 36 H (9-16) mg/dL Creatinine 2.47 H (0.5-1.4) mg/dL Estim Creat Clear Calc 21.5 Estimated GFR 20 POC Glucose (60-115) mg/dL Random Glucose 566 H* (60-115) mg/dL Estimat Average Glucose TNP Hemoglobin A1c % > 14.0 % Calcium 8.6 (8.4-10.2) mg/dL Total Bilirubin 0.4 (0.0-1.0) mg/dL Direct Bilirubin < 0.2 (0.0-0.5) mg/dL AST 17 (5-31) U/L ALT 9 (0-31) U/L Alkaline Phosphatase 83 (39-117) U/L Total Protein 7.8 (6.5-8.0) g/dL Albumin 2.8 L D (3.5-5.0) g/dL Acetone, Qual Negative (Negative) COVID-19 (SAAD) (Negative) COVID-19 Clin Com 11/11/20 11/11/20 Range/Units 15:20 15:56 WBC (4.8-10.8) X10*3/uL RBC (4.20-5.50) X10*6/uL Hgb (12.0-16.0) g/dl Hct (37-47) % MCV (80-98) fL MCH (27.0-33.0) pg MCHC (31.0-35.0) g/dl RDW (11.0-16.0) % Plt Count (160-400) X10*3/uL MPV (9.4-12.3) fL Immature Gran % (Auto) (0.0-0.4) % Neut % (Auto) (45-73) % Lymph % (Auto) (20-40) % [place] % (Auto) (2-11) % Eos % (Auto) (0-4) % Baso % (Auto) (0-2) % Lymph # (Auto) (1.2-4.9) X10*3/uL [place] # (Auto) (0.1-1.2) X10*3/uL Eos # (Auto) (0.0-0.4) X10*3/uL Baso # (Auto) (0.0-0.2) X10*3/uL Abs Immat Gran (auto) (0.00-0.03) X10*3/uL Absolute Neuts (auto) (2.0-8.3) X10*3/uL Absolute Nucleated RBC (0.0-0.012) X10*3/uL Nucleated RBC % (auto) (0.0-0.2) /100WBC Sodium (135-145) mmol/L Potassium (3.3-5.1) mmol/L Chloride (96-108) mmol/L Carbon Dioxide (22-29) mmol/L Anion Gap (12-20) BUN (9-16) mg/dL Creatinine (0.5-1.4) mg/dL Estim Creat Clear Calc Estimated GFR POC Glucose 357 H* (60-115) mg/dL Random Glucose (60-115) mg/dL Estimat Average Glucose Hemoglobin A1c % % Calcium (8.4-10.2) mg/dL Total Bilirubin (0.0-1.0) mg/dL Direct Bilirubin (0.0-0.5) mg/dL AST (5-31) U/L ALT (0-31) U/L Alkaline Phosphatase (39-117) U/L Total Protein (6.5-8.0) g/dL Albumin (3.5-5.0) g/dL Acetone, Qual (Negative) COVID-19 (SAAD) Negative (Negative) COVID-19 Clin Com See Note Discharge Plan Discharge Clinical Impression: Hyperglycemia due to type 2 diabetes mellitus Qualifiers: Diabetes mellitus half-way insulin use: without half-way use Qualified Code(s): E11.65 - Type 2 diabetes mellitus with hyperglycemia Renal failure (ARF), acute on chronic Qualifiers: Acute renal failure type: unspecified Chronic kidney disease stage: stage 3 (moderate) Chronic kidney disease stage 3 subtype: stage 3b (GFR 30-44) Qualified Code(s): N17.9 - Acute kidney failure, unspecified Patient Disposition: Admitted As Inpatient
[2020-11-11] MEDS: 0.9 % Sodium Chloride 1,000 ML 999 ML IVCONT (13:28)
[2020-11-11 13:34] LABS: MANUAL DIFF FLAG NO
[2020-11-11 13:35] LABS: Basophils Percent Auto 0.4 % (0-2); Eosinophils Absolute Auto 0.1 X10*3/uL (0.0-0.4); Eosinophils Percent Auto 0.9 % (0-4); Hematocrit 34.4 % (37-47); Hemoglobin 11.4 g/dl (12.0-16.0); Imm Gran Abs Auto 0.02 X10*3/uL (0.00-0.03); Imm Gran Pct Auto 0.4 % (0.0-0.4); Lymphocytes Absolute Auto 1.4 X10*3/uL (1.2-4.9); Lymphocytes Percent Auto 24.4 % (20-40); Mean Corpuscular HGB Conc 33.1 g/dl (31.0-35.0); Mean Corpuscular Hemoglobin 28.9 pg (27.0-33.0); Mean Corpuscular Volume 87.3 fL (80-98); Monocytes Absolute Auto 0.3 X10*3/uL (0.1-1.2); Monocytes Percent Auto 5.5 % (2-11); Neutrophils Absolute Auto 3.9 X10*3/uL (2.0-8.3); Neutrophils Percent Auto 68.4 % (45-73); Platelet Count 232 X10*3/uL (160-400); Red Blood Count 3.94 X10*6/uL (4.20-5.50); Red Cell Distribution Width 13.2 % (11.0-16.0); White Blood Count 5.7 X10*3/uL (4.8-10.8)
[2020-11-11 14:18] LABS: Acetone, serum QL Negative (Negative)
[2020-11-11 14:20] LABS: Hemoglobin A1c % > 14.0 %
[2020-11-11 14:21] LABS: Alanine Aminotransferase 9 U/L (0-31); Albumin Level 2.8 g/dL (3.5-5.0); Alkaline Phosphatase 83 U/L (39-117); Anion Gap 11 (12-20); Aspartate Amino Transferase 17 U/L (5-31); Bilirubin Direct < 0.2 mg/dL (0.0-0.5); Bilirubin Total 0.4 mg/dL (0.0-1.0); Blood Urea Nitrogen 36 mg/dL (9-16); Calcium 8.6 mg/dL (8.4-10.2); Carbon Dioxide 27 mmol/L (22-29); Chloride 99 mmol/L (96-108); Creatinine Clr Calc Pharmacy 21.5; Estimated Glomerular Filt Rate 20; Glucose Random 566 mg/dL (60-115); Potassium 4.6 mmol/L (3.3-5.1); Sodium 132 mmol/L (135-145); Total Protein 7.8 g/dL (6.5-8.0)
[2020-11-11] MEDS: Insulin Lispro 100 UNIT/ML 3 ML VIAL 14 UNIT SUBCUT (15:05)
[2020-11-11 15:39] LABS: COVID-19 Test Negative (Negative)
--- NOTE | 2020-11-11 15:47 | PC.NURSE ---
Dr Ruelas at bedside for initial hospitalist eval. Plan is to admit for diabetic management and teaching.
[2020-11-11 16:03] LABS: Glucose, Whole Blood 357 mg/dL (60-115)
--- NOTE | 2020-11-11 16:09 | P.HPHOSP_ITS ---
History of Present Illness Date of Service: 11/11/20 Chief Complaint: hyperglycemia This is a 60-year-old female with a past medical history of uncontrolled diabetes mellitus on oral medications, uncontrolled hypertension on multiple antihypertensives, CKD stage a unknown, prior CVA (does not appear to be any antiplatelet) who presents to the hospital after being referred to the emergency room by her primary care provider for uncontrolled blood sugars. The patient herself reports that her sugars over the last several weeks at least have been in the 4-500 range. She endorses polydipsia and polyuria. She denies any new visual changes. She reports that she was previously on metformin and this was discontinued and so now she is only on glipizide. She reports that she attempts to keep a diabetic diet. She also endorses that she has been compliant with her medications at home. Patient was in the emergency room about 1 week ago at which point she was noted to be hyperglycemic and progressive renal failure. She was treated with intravenous fluids and had improvement in her hyperglycemia as well as Haresh I and so she was discharged home with close follow-up PCP. She now in the emergency room is noted to have worsening of her renal failure and blood glucose over 500. Her ketones are negative. Blood pressure is in the 180s. She was given 14 units of Humalog and a L of IV fluids and admission was requested. Review of Systems Review of Systems: General - denies fevers or chills, denies weakness or fati wood HEENT -denies blurred vision, denies headache, denies sore throat Cardiovascular - denies chest pain or palpitations, denies edema Respiratory - denies shortness of breath, coughing, wheezing Gastrointestinal - denies abdominal pain, nausea, vomiting, diarrhea - denies flank pain, denies dysuria, denies frequency or urgency Musculoskeletal - denies back pain, denies hip pain, denies knee pain, denies shoulder pain Neurological - denies any focal weakness or numbness Skin, denies any bruising or redness Psychiatric - denies any suicidal ideation, hallucinations, homicidal ideation Endocrinology - denies intolerance to hot / cold temperatures; + polydipsia, polyuria [facility] Medical History (Updated 11/11/20 @ 16:09 by Isidro Ruelas MD) CKD (chronic kidney disease) Diabetes GERD (gastroesophageal reflux disease) High blood pressure High cholesterol Stroke Family History (Updated 11/11/20 @ 16:10 by Isidro Ruelas MD) Other Diabetes mellitus Surgical History (Updated 11/11/20 @ 16:10 by Isidro Ruelas MD) History of appendectomy Social History Alcohol intake: unknown Smoking Status: Never smoker Smoked in Last 30 Days: No Use of substances other than those prescribed or required for medical reasons: No Advance Directives: Yes Advance Directives Information Provided: Yes Advance Directives on File: No Meds Allergies Allergy/AdvReac Type Severity Reaction Status Date / Time Seasonal Allergies AdvReac Runny Nose Verified 11/11/20 12:31 Home Medications Medication Instructions Recorded Confirmed Last Taken Type amlodipine 1 tab PO DAILY 11/11/20 11/11/20 Unknown History clonidine HCl 1 tab PO BID 11/11/20 11/11/20 Unknown History donepezil 1 tab PO BEDTIME 11/11/20 11/11/20 Unknown History glipizide 1 tab PO BID 11/11/20 11/11/20 Unknown History metformin 1 tab PO BID 11/11/20 11/11/20 Unknown History metoprolol succinate 1 tab PO DAILY 11/11/20 11/11/20 Unknown History omeprazole 1 cap PO DAILY 11/11/20 11/11/20 Unknown History quetiapine 0.5 tab PO BEDTIME 11/11/20 11/11/20 Unknown History simvastatin 1 tab PO BEDTIME 11/11/20 11/11/20 Unknown History Physical Exam Vital Signs and Narrative: Vital Signs: Last Vital Signs Temp 98.0 F 11/11/20 12:29 Pulse 74 11/11/20 15:03 Resp 18 11/11/20 15:03 BP 186/92 H 11/11/20 15:03 Pulse Ox 98 11/11/20 15:03 Body Mass Index 30.2 Const: Other: Constitutional - Awake and Alert, No apparent distress Eyes - PERRLA, EOMI Cardiovascular - S1S2, RRR, No edema Respiratory - Normal lung expansion, Normal respiratory effort, No respiratory distress, CTA bilaterally Gastrointestinal - NT / ND; +BS; No rebound or guarding - No CVA tenderness Extremities - no calf tenderness bilaterally, no swelling Musculoskeletal - Normal inspection, normal ROM Skin - Warm/Dry Neurological - No focal deficit Psychological - Appropriate affect Results Labs CBC and Chem 7: 11/11/20 13:28 11/11/20 13:28 Labs: Laboratory Results - last 24 hr 11/11/20 11/11/20 11/11/20 13:28 13:28 13:28 MCV 87.3 MCH 28.9 MCHC 33.1 RDW 13.2 Plt Count 232 MPV 12.0 Immature Gran % (Auto) 0.4 Neut % (Auto) 68.4 Lymph % (Auto) 24.4 Murray % (Auto) 5.5 Eos % (Auto) 0.9 Baso % (Auto) 0.4 Lymph # (Auto) 1.4 Murray # (Auto) 0.3 Eos # (Auto) 0.1 Baso # (Auto) 0.0 Abs Immat Gran (auto) 0.02 Absolute Neuts (auto) 3.9 Absolute Nucleated RBC 0.000 Nucleated RBC % (auto) 0.0 Anion Gap 11 L Estim Creat Clear Calc 21.5 Estimated GFR 20 POC Glucose Random Glucose 566 H* Estimat Average Glucose TNP Hemoglobin A1c % > 14.0 Calcium 8.6 Total Bilirubin 0.4 Direct Bilirubin < 0.2 AST 17 ALT 9 Alkaline Phosphatase 83 Total Protein 7.8 Albumin 2.8 L D Acetone, Qual Negative COVID-19 (SAAD) COVID-19 Timbre 11/11/20 11/11/20 15:20 15:56 MCV MCH MCHC RDW Plt Count MPV Immature Gran % (Auto) Neut % (Auto) Lymph % (Auto) Murray % (Auto) Eos % (Auto) Baso % (Auto) Lymph # (Auto) Murray # (Auto) Eos # (Auto) Baso # (Auto) Abs Immat Gran (auto) Absolute Neuts (auto) Absolute Nucleated RBC Nucleated RBC % (auto) Anion Gap Estim Creat Clear Calc Estimated GFR POC Glucose 357 H* Random Glucose Estimat Average Glucose Hemoglobin A1c % Calcium Total Bilirubin Direct Bilirubin AST ALT Alkaline Phosphatase Total Protein Albumin Acetone, Qual COVID-19 (SAAD) Negative COVID-19 Clin Com See Note Assessment and Plan (1) Hyperglycemia due to type 2 diabetes mellitus: Qualifiers: Diabetes mellitus penitentiary insulin use: without administrator social welfare use Qualified Code(s): E11.65 - Type 2 diabetes mellitus with hyperglycemia Status: Acute This is a 60-year-old female with a past medical history of uncontrolled diabetes mellitus, chronic kidney disease, hypertension, prior CVA presents to the emergency room after being referred by her primary care doctor due to severe hyperglycemia. Patient was in the emergency room 1 week ago at which time she was also noted to be significantly hyperglycemic and was referred for outpatient follow-up. Due to her multiple comorbidities, she will be admitted for further treatment of her diabetes. 1. Hyperglycemia due to uncontrolled DM, A1C > 14 will need insulin, on PO meds only at home (glipizide, metformin stopped due to HARESH). start humalog and add low dose lantus 10 units at bedtime Due to her chronic medical issues, recurrent ED visits and high risk for decompensation she will be admitted inpatient. She will need at least 24 to 48 hours of close glucose monitoring and titration of insulin. diabetic teaching provided, will need further teaching 2. HARESH on CKD, baseline stage difficult to determine patients SCr was 1.57 in May 2020 and has increased now to > 2.5. Suspected due to uncontorlled DM / HTN IVF @ 100 cc/hr x 2L repeat check tomorrow neprhology consult if not improved 3. Uncontrolled HTN patient endorses compliance with antihypertensives will continue home regime, give an additional dose of norvasc 5mg now -- supsect she will need uptitration 4. ? dementia / congnitive deline patient does not have this listed as at diagnosis but she is on donepezil; will need collateral information from the family continue other baseline meds Full Code DVT pptx, subcut. heparin
[2020-11-11] MEDS: amLODIPine Besylate 5 MG TABLET PO (16:25)
--- NOTE | 2020-11-11 18:28 | PC.NURSE ---
Report given to ESTRELLITA Grigsby. Pt ready for transport.
[2020-11-11 19:31] LABS: Glucose, Whole Blood 108 mg/dL (60-115)
[2020-11-11] MEDS: 0.9 % Sodium Chloride 1,000 ML 100 ML IVCONT (19:32)
[2020-11-11] MEDS: Heparin Sodium,Porcine 5,000 UNIT/ML VIAL 5000 UNIT SUBCUT (22:03)
[2020-11-11] MEDS: cloNIDine HCL 0.1 MG TABLET PO (22:04)
[2020-11-11 22:08] LABS: Glucose, Whole Blood 222 mg/dL (60-115)
[2020-11-11] MEDS: QUEtiapine Fumarate 25 MG TABLET 12.5 MG PO (22:09)
[2020-11-11] MEDS: Donepezil HCl 10 MG TABLET PO (22:10)
[2020-11-11] MEDS: Insulin Glargine,Hum.rec.anlog 100 UNIT/ML 10 ML VIAL 10 UNIT SUBCUT (22:11)
[2020-11-11] MEDS: Insulin Lispro 100 UNIT/ML 3 ML VIAL SUBCUT (22:12)
[2020-11-12] VITALS (12 sets, daily range): BP systolic 133–172; BP diastolic 67–83; PULSE 70–79; RESP 16–18; TEMP 36.1–37.2; O2SAT 94–97; BMI 30.2
[2020-11-12] MEDS: 0.9 % Sodium Chloride 1,000 ML 100 ML IVCONT (02:16)
[2020-11-12] MEDS: Omeprazole 20 MG CAPSULE.DR PO (06:29)
[2020-11-12 07:10] LABS: Glucose, Whole Blood 244 mg/dL (60-115)
[2020-11-12 07:18] LABS: MANUAL DIFF FLAG NO
[2020-11-12 07:21] LABS: Basophils Percent Auto 0.5 % (0-2); Eosinophils Absolute Auto 0.1 X10*3/uL (0.0-0.4); Eosinophils Percent Auto 1.3 % (0-4); Hematocrit 32.2 % (37-47); Hemoglobin 10.4 g/dl (12.0-16.0); Imm Gran Abs Auto 0.01 X10*3/uL (0.00-0.03); Imm Gran Pct Auto 0.2 % (0.0-0.4); Lymphocytes Absolute Auto 2.3 X10*3/uL (1.2-4.9); Mean Corpuscular HGB Conc 32.3 g/dl (31.0-35.0); Mean Corpuscular Hemoglobin 28.6 pg (27.0-33.0); Mean Corpuscular Volume 88.5 fL (80-98); Mean Platelet Volume 12.2 fL (9.4-12.3); Monocytes Absolute Auto 0.3 X10*3/uL (0.1-1.2); Monocytes Percent Auto 5.1 % (2-11); Neutrophils Absolute Auto 3.4 X10*3/uL (2.0-8.3); Neutrophils Percent Auto 55.9 % (45-73); Platelet Count 223 X10*3/uL (160-400); Red Blood Count 3.64 X10*6/uL (4.20-5.50); Red Cell Distribution Width 13.6 % (11.0-16.0); White Blood Count 6.1 X10*3/uL (4.8-10.8)
[2020-11-12] MEDS: Insulin Lispro 100 UNIT/ML 3 ML VIAL SUBCUT ×4 (08:01→20:53)
[2020-11-12 08:02] LABS: Anion Gap 10 (12-20); Blood Urea Nitrogen 28 mg/dL (9-16); Calcium 7.9 mg/dL (8.4-10.2); Carbon Dioxide 26 mmol/L (22-29); Chloride 107 mmol/L (96-108); Creatinine Clr Calc Pharmacy 28.6; Estimated Glomerular Filt Rate 27; Glucose Random 249 mg/dL (60-115); Potassium 3.6 mmol/L (3.3-5.1); Sodium 139 mmol/L (135-145)
[2020-11-12] MEDS: Heparin Sodium,Porcine 5,000 UNIT/ML VIAL 5000 UNIT SUBCUT ×2 (08:02→20:54)
[2020-11-12] MEDS: Atorvastatin Calcium 10 MG TABLET PO (08:03)
[2020-11-12] MEDS: amLODIPine Besylate 5 MG TABLET 10 MG PO (08:04)
[2020-11-12] MEDS: Metoprolol Succinate ER 100 MG TAB.ER.24H PO (08:05)
[2020-11-12] MEDS: cloNIDine HCL 0.1 MG TABLET PO ×2 (08:06→20:54)
[2020-11-12 11:32] LABS: Glucose, Whole Blood 341 mg/dL (60-115)
--- NOTE | 2020-11-12 11:53 | P.PNIM_ITS ---
Subjective Subjective Date of Service: 11/12/20 Interval History: f/u hyperglycemia Diagnosed with diabetes since 1978, maintained on metformin since this past August. Metformin d/c due to increasing renal insufficiency. Has been on glipizide. Blood sugar has been an issue since. Initially with polyuria, polydipsia, now improved No complaints at this time Review of Systems Review of Systems: Yes all other systems are reviewed and are negative Constitutional Constitutional: Denies chills and Denies fever(s) Cardiovascular Cardiovascular: Denies chest pain Respiratory Respiratory: Denies cough Gastrointestinal Gastrointestinal: Denies abdominal pain Physical Exam Vital Signs: Vital Signs: Last Vital Signs Temp 98.6 F 11/12/20 11:21 Pulse 70 11/12/20 11:21 Resp 16 11/12/20 11:21 BP 162/73 H 11/12/20 11:21 Pulse Ox 97 11/12/20 11:21 Body Mass Index 30.2 Const: Nutritional Appearance: well nourished Orientation/consciousness: patient oriented x3 HENMT: Head: Yes normocephalic and Yes atraumatic Eyes: Sclerae: sclerae normal Chest: Chest palpation & inspection: normal inspection of the chest Resp: Effort & Inspection: normal respiratory effort and no respiratory distress Auscultation: clear to auscultation bilaterally Cardio: Rate: regular rate Rhythm: regular rhythm GI: Palpation (GI): Soft to palpation and nontender Skin: General skin exam: no rashes or lesions noted Neuro: General: patient oriented x3 Cranial nerves: Yes CN's II-XII intact bilaterally and Yes Bilaterally intact EOM present Extrem: General: Yes normal to inspection Objective Data Current Medications Generic Name Dose Route Start Last Admin Trade Name Rejiq PRN Reason Stop Dose Admin Amlodipine Besylate 10 mg 11/12/20 09:00 11/12/20 08:04 Amlodipine Besylate 5 Mg Tablet PO 10 mg DAILY GHISLAINE Administration Protocol Atorvastatin Calcium 10 mg 11/12/20 09:00 11/12/20 08:03 Atorvastatin Calcium 10 Mg Tablet PO 10 mg DAILY GHISLAINE Administration Clonidine HCl 0.1 mg 11/11/20 21:00 11/12/20 08:06 Clonidine Hcl 0.1 Mg Tablet PO 0.1 mg BID GHISLAINE Administration Protocol Donepezil HCl 10 mg 11/11/20 21:00 11/11/20 22:10 Donepezil Hcl 10 Mg Tablet PO 10 mg BEDTIME GHISLAINE Administration Heparin Sodium (Porcine) 5,000 unit 11/11/20 20:00 11/12/20 08:02 Heparin Sodium,Porcine 5,000 Unit/Ml Vial SUBCUT 5,000 unit Q12H GHISLAINE Administration Sodium Chloride 1,000 mls @ 100 mls/hr 11/11/20 18:51 11/12/20 02:16 Ns IVCONT 11/12/20 14:50 100 mls/hr .Q10H GHISLAINE Administration Insulin Glargine 10 unit 11/11/20 21:00 11/11/20 22:11 Insulin Glargine,Hum.Rec.Anlog 100 Unit/Ml 10 Ml Vial SUBCUT 10 unit BEDTIME GHISLAINE Administration Insulin Human Lispro 0 unit 11/11/20 18:51 11/12/20 11:46 Insulin Lispro 100 Unit/Ml 3 Ml Vial SUBCUT 8 unit QIDACHS [facility] Administration Protocol Metoprolol Succinate 100 mg 11/12/20 09:00 11/12/20 08:05 Metoprolol Succinate Er 100 Mg Tab.Er.24h PO 100 mg DAILY GHISLAINE Administration Protocol Omeprazole 20 mg 11/12/20 06:30 11/12/20 06:29 Omeprazole 20 Mg Capsule.Dr PO 20 mg DAILY@0630 GHISLAINE Administration Quetiapine Fumarate 12.5 mg 11/11/20 21:00 11/11/20 22:09 Quetiapine Fumarate 25 Mg Tablet PO 12.5 mg BEDTIME GHISLAINE Administration Sodium Chloride 3 ml 11/12/20 00:00 11/12/20 08:07 0.9 % Sodium Chloride Flush 3 Ml Syringe IVFLUSH Not Given QSHIFT [facility] Labs CBC & Chem 7: 11/12/20 06:39 11/12/20 06:39 Assessment and Plan (1) Hyperglycemia due to type 2 diabetes mellitus: Status: Acute (2) Renal failure (ARF), acute on chronic: Status: Acute Assessment and Plan: This is a 60-year-old female with a past medical history of uncontrolled diabetes mellitus, chronic kidney disease, hypertension, prior CVA presents to the emergency room after being referred by her primary care doctor due to severe hyperglycemia. Patient was in the emergency room 1 week ago at which time she was also noted to be significantly hyperglycemic and was referred for outpatient follow-up. Due to her multiple comorbidities, she will be admitted for further treatment of her diabetes. 1. Hyperglycemia due to uncontrolled DM, A1C > 14 will need insulin, on PO meds only at home (glipizide, metformin stopped due to COLEMAN). -Continue humalog and low dose lantus 10 units at bedtime POCs improving but still elevated, follow 24 hour insulin needs, will likely need further up titration diabetic teaching provided, will need further teaching 2. COLEMAN on CKD Creatinine improved from 2.47 to 1.86 with IVF Suspected due to uncontrolled DM / HTN -follow renal function 3. Uncontrolled HTN patient endorses compliance with antihypertensives will continue home regime metoprolol, clonidine -BP still elevated will increase Norvasc to 10 mg daily -close BP monitoring 4. ? dementia / congnitive decline patient does not have this listed as at diagnosis but she is on donepezil 5. HLD continue statin 6. mood continue seroquel 7. gerd continue prilosec Dispo: home with VNA possibly tomorrow. Full Code DVT pptx, subcut. heparin Attending Dr. Ruelas
--- NOTE | 2020-11-12 12:54 | MHC.CM.PN ---
IMM 11/12/20, EMR REVIEWED, PT ADMITTED W/COLEMAN AND HYPERGLYCEMIA, CM MET WITH PT WHO IS ALERT AND ORIENTED, PT REPORTS SHE LIVES ALONE, DOES BLOOD SUGARS TWICE A DAY, TAKES GLIPIZIDE TWICE DAILY AND SEES A HOROLOGIST, PER HOSPITALIST PT WILL START ON INSULIN AND NEED EDUCATION AND POSSIBLE VNA SERVICES. 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 PT DENIES HAVING A HCP AND REPORTS SHE WOULD LIKE TO COMPLETE ONE W/CM PRIOR TO D/C. PCP: AILYN LUCIA ENDOCRINOLOGY: DR JEFFERS
--- NOTE | 2020-11-12 14:06 | MHC.CM.PN ---
CM COMPLETED HCP WITH PT, PT ASSIGNED HER COUSIN CINDY BALDERAS [phone] HER HEALTHCARE AGENT, NO ALTERNATE CHOSEN, PT GIVEN INFORMATION W/ORIGINAL AND 3 COPIES, COPY UPLOADED TO [employer] AND PLACED IN CHART.
--- NOTE | 2020-11-12 15:20 | MHC.CM.PN ---
CM CONTACTED [employer] AT 2:50PM TO DETERMINE WHICH INSULIN PENS WOULD BE COVERED, PER INSURANCE PHARMACIST THE BASAGLAR KWIK PEN AND LEVIMIR PEN ARE COVERED FOR LONG ACTING IN PLACE OF LANTUS, NOVOLOG AND NOVOLIN PENS ARE COVERED FOR SHORT ACTING INSULIN IN PLACE OF HUMALOG. HOSPITALIST NOTIFIED VIA TIGER. CM CONTACTED PT'S PHARMACY AND GAVE THEM PT'S MEDICAID POLICY NUMBER TO COVER COPAYS, PER PHARMACY WITH BOTH IT WILL COST $3.50 FOR LONG LEVIMIR AND THERE IS NO COPAY FOR NOVOLOG.
[2020-11-12 16:17] LABS: Glucose, Whole Blood 322 mg/dL (60-115)
[2020-11-12] MEDS: 0.9 % Sodium Chloride Flush 3 ML SYRINGE IVFLUSH ×2 (16:32→20:59)
[2020-11-12 20:38] LABS: Glucose, Whole Blood 449 mg/dL (60-115)
[2020-11-12] MEDS: Insulin Glargine,Hum.rec.anlog 100 UNIT/ML 10 ML VIAL 10 UNIT SUBCUT (20:53)
[2020-11-12] MEDS: Donepezil HCl 10 MG TABLET PO (20:54)
[2020-11-12] MEDS: QUEtiapine Fumarate 25 MG TABLET 12.5 MG PO (20:55)
[2020-11-13 03:59] VITALS: BP 146/74; PULSE 76; RESP 20; TEMP 36.3; O2SAT 98
[2020-11-13] MEDS: Omeprazole 20 MG CAPSULE.DR PO (06:19)
[2020-11-13 07:11] LABS: Anion Gap 11 (12-20); Blood Urea Nitrogen 28 mg/dL (9-16); Carbon Dioxide 23 mmol/L (22-29); Chloride 108 mmol/L (96-108); Creatinine Clr Calc Pharmacy 25.8; Estimated Glomerular Filt Rate 25; Glucose Fasting 154 mg/dL (60-99); Potassium 3.9 mmol/L (3.3-5.1); Sodium 138 mmol/L (135-145)
[2020-11-13 07:24] VITALS: BP 169/79; PULSE 74; RESP 16; TEMP 36; O2SAT 96
[2020-11-13 07:28] LABS: Calcium 8.5 mg/dL (8.4-10.2)
[2020-11-13 07:31] VITALS: BP 169/79; RESP 16
[2020-11-13 07:36] LABS: Glucose, Whole Blood 182 mg/dL (60-115)
[2020-11-13] MEDS: Heparin Sodium,Porcine 5,000 UNIT/ML VIAL 5000 UNIT SUBCUT (07:58)
[2020-11-13] MEDS: 0.9 % Sodium Chloride Flush 3 ML SYRINGE IVFLUSH (07:58)
[2020-11-13] MEDS: Insulin Lispro 100 UNIT/ML 3 ML VIAL SUBCUT ×2 (07:58→12:10)
[2020-11-13 07:59] VITALS: BP 169/79; PULSE 74
[2020-11-13] MEDS: Atorvastatin Calcium 10 MG TABLET PO (07:59)
[2020-11-13] MEDS: cloNIDine HCL 0.1 MG TABLET PO (07:59)
[2020-11-13] MEDS: Metoprolol Succinate ER 100 MG TAB.ER.24H PO (07:59)
[2020-11-13] MEDS: amLODIPine Besylate 5 MG TABLET 10 MG PO (07:59)
--- NOTE | 2020-11-13 10:23 | P.DS_ITS ---
DS: Providers Provider Date of Service: 11/13/20 Date of admission: 11/11/20 16:07 Primary care physician: Gasper Helms MD DS: Diagnosis Discharge Diagnosis (1) Hyperglycemia due to type 2 diabetes mellitus: Status: Acute (2) Renal failure (ARF), acute on chronic: Status: Acute DS: Medications Discharge Medications Home Medications: Home Medications Medication Instructions Recorded Confirmed amlodipine 1 tab PO DAILY 11/11/20 11/11/20 clonidine HCl 1 tab PO BID 11/11/20 11/11/20 donepezil 1 tab PO BEDTIME 11/11/20 11/11/20 glipizide 1 tab PO BID 11/11/20 11/11/20 metformin 1 tab PO BID 11/11/20 11/11/20 metoprolol succinate 1 tab PO DAILY 11/11/20 11/11/20 omeprazole 1 cap PO DAILY 11/11/20 11/11/20 quetiapine 0.5 tab PO BEDTIME 11/11/20 11/11/20 simvastatin 1 tab PO BEDTIME 11/11/20 11/11/20 DS: Summary Hospital Course Hospital Course: This is a 60-year-old female with a past medical history of uncontrolled diabetes mellitus on oral medications, uncontrolled hypertension on multiple antihypertensives, CKD stage a unknown, prior CVA (does not appear to be any antiplatelet) who presents to the hospital after being referred to the emergency room by her primary care provider for uncontrolled blood sugars. The patient herself reports that her sugars over the last several weeks at least have been in the 4-500 range. She endorses polydipsia and polyuria. She denies any new visual changes. She reports that she was previously on metformin and this was discontinued and so now she is only on glipizide. She reports that she attempts to keep a diabetic diet. She also endorses that she has been compliant with her medications at home. Patient was in the emergency room about 1 week ago at which point she was noted to be hyperglycemic and progressive renal failure. She was treated with intravenous fluids and had improvement in her hyperglycemia as well as Coleman I and so she was discharged home with close follow-up PCP. She now in the emergency room is noted to have worsening of her renal failure and blood glucose over 500. Her ketones are negative. Blood pressure is in the 180s. She was given 14 units of Humalog and a L of IV fluids and admission was requested. 1. Hyperglycemia. A1C > 14. Home glipizide, metformin stopped due to COLEMAN. Lantus and humalog sliding scale was started diabetic teaching provided, will discharge home with VNA for further diabetic teaching 2. COLEMAN on CKD Creatinine improved somewhat with IVF. Likely at basline. Should follow up with PCP and nephrology to monitor renal function 3. Uncontrolled HTN patient endorses compliance with antihypertensives Norvasc was increased to 10 mg daily, clonidine increased to 0.2 mg BID, metoprolol continued Should ultimately be on BENJA/Arb which can be started as an outpatient when creatinine is stable. Time Spent with Patient Time attestation: Total time spent providing and/or coordinating discharge services: Discharge coordination time: Greater than 30 minutes Physical Exam Vital Signs: Vital Signs: Last Vital Signs Temp 96.8 F 11/13/20 07:24 Pulse 74 11/13/20 07:59 Resp 16 11/13/20 07:31 BP 169/79 H 11/13/20 07:59 Pulse Ox 96 11/13/20 07:24 Body Mass Index 30.2 Const: Nutritional Appearance: well nourished Orientation/consciousness: patient oriented x3 HENMT: Head: Yes normocephalic and Yes atraumatic Eyes: Sclerae: sclerae normal Chest: Chest palpation & inspection: normal inspection of the chest Resp: Effort & Inspection: normal respiratory effort and no respiratory distress Cardio: Rate: regular rate Rhythm: regular rhythm GI: Palpation (GI): Soft to palpation and nontender Skin: General skin exam: no rashes or lesions noted Neuro: General: patient oriented x3 Cranial nerves: Yes CN's II-XII intact bilaterally and Yes Bilaterally intact EOM present DS: Data Data Completed and Pending Labs on day of discharge: Laboratory Results - last 24 hr 11/12/20 11/12/20 11/12/20 11:23 16:06 20:31 Sodium Potassium Chloride Carbon Dioxide Anion Gap BUN Creatinine Estim Creat Clear Calc Estimated GFR POC Glucose 341 H 322 H 449 H* Fasting Glucose Calcium 11/13/20 11/13/20 05:48 07:27 Sodium 138 Potassium 3.9 Chloride 108 Carbon Dioxide 23 Anion Gap 11 L BUN 28 H Creatinine 2.05 H Estim Creat Clear Calc 25.8 Estimated GFR 25 POC Glucose 182 H Fasting Glucose 154 H Calcium 8.5 D Discharge Plan Discharge Patient Disposition: Home Health Service Referrals: [facility] [Outside] (DISCHARGED HOME WITH NEW REFERRAL TO THE [facility]HOMIMICHEL VISITING NURSE FOR DIAGNOSIS SIGHN AND SYMPTOM MANAGEMENT AND DEVELOPEMENT OF ACTION PLAN FOR WHEN TO CALL /FOR WHAT/ WHOM MEDICATION RECONCILATION AND REINFORCEMENT OF TEACHING PCP DR GASPER HELMS PATIENT TO CALL FOR POST HOSPITAL DISCHAGRE FOLLOW UP TRANSPORTAION HCP/COUSIN CINDY [phone] Gasper Helms MD [Primary Care Provider] - Angel Ferro MD [Physician] - 2 Weeks (Hyperglycemia, started on insulin) Discharge Medications: New Basaglar KwikPen U-100 Insulin 100 unit/mL (3 mL) insulin pen 10 unit subcut QPM 30 Days Qty: 3 RF: 0 alcohol swabs Pads, Medicated 1 pad topical QIDWMHS Qty: 200 RF: 0 (DME) blood-glucose meter [FreeStyle Lite Meter] Kit See Rx Instructions .ROUTE .MEDSUPPLY Qty: 1 RF: 0 (DME) FreeStyle Test Strip See Rx Instructions .ROUTE .MEDSUPPLY Qty: 100 RF: 0 (DME) lancets 33 gauge misc See Rx Instructions .ROUTE .MEDSUPPLY Qty: 100 RF: 0 (DME) pen needle, diabetic [Pen Needle] 32 gauge x 5/32 needle See Rx Instructions .ROUTE .MEDSUPPLY Qty: 50 RF: 0 insulin aspart U-100 [Novolog Flexpen U-100 Insulin] 100 unit/mL (3 mL) insulin pen See Rx Instructions .ROUTE .COMPLEX Qty: 15 RF: 0 amlodipine [Norvasc] 10 mg tablet 10 mg PO DAILY Qty: 30 RF: 0 clonidine HCl 0.2 mg tablet 0.2 mg PO BID Qty: 60 RF: 0 Continued quetiapine 25 mg tablet 0.5 tab PO BEDTIME RF: 0 donepezil 10 mg tablet 1 tab PO BEDTIME RF: 0 metoprolol succinate 100 mg tablet extended release 24 hr 1 tab PO DAILY RF: 0 simvastatin 20 mg tablet 1 tab PO BEDTIME RF: 0 omeprazole 20 mg capsule,delayed release(DR/EC) 1 cap PO DAILY RF: 0 Discontinued clonidine HCl 0.1 mg tablet 1 tab PO BID RF: 0 amlodipine 5 mg tablet 1 tab PO DAILY RF: 0 metformin 1,000 mg tablet 1 tab PO BID RF: 0 glipizide 5 mg tablet 1 tab PO BID RF: 0 Discharge Orders: Discharge Order (Routine); Ordered 11/13/20 Ordered By: Marisa Saldana Diet: diabetic diet Activity on Discharge: As tolerated Stand Alone Forms: Patient Portal Discharge page Care Plan Goals: See below Health Concerns: Uncontrolled blood pressure Uncontrolled diabetes Chronic kidney disease Plan of Treatment: Hyperglycemia -Glipizide and metformin were stopped due to worsening kidney function -Hemoglobin A1c was elevated greater than 14 and insulin was started -call your monument erector to make an appointment for follow-up -call your PCP for follow up -you will be discharged home with visiting nurses for assistance in diabetic Education Hypertension -Norvasc dose has increased -clonidine dose has increased -metoprolol dose has stayed the same -please call your PCP to make a follow-up appointment to monitor your blood pressure Chronic kidney disease -please call your PCP to make a follow-up appointment to monitor your kidney function
--- NOTE | 2020-11-13 10:57 | MHC.CM.PN ---
ELECTRONIC MEDICAL RECORD REVIEWED ALONG WITH CASE DISCUSSED WITH STAFF NURSE AND ON MULTIPLE DISCIPLINARY ROUNDS. DISCHARGE PLAN HOME WITH THE SARGEANT VISITING NURSE FOR DIAGNOSIS SIGN SYMPTOM MANAGEMENT AND DEVELOPMENT OF ACTION PLAN OF WHEN TO CALL ,FOR WHAT ,ABD WHOM TO CALL, REINFORCEMENT OF TEACHING ABOUT DIAGNOSIS AND MEDICATIONS CHANGES AND MEDICATION RECONCILIATION PCP DR AILYN LUCIA PATIENT TO CALL FOR POST HOSPITAL DISCHARGE FOLLOW UP TRANSPORTATION HER HCP COUSIN CINDY [phone]
[2020-11-13 11:12] LABS: Glucose, Whole Blood 289 mg/dL (60-115)
[2020-11-13 11:44] VITALS: BP 152/74; PULSE 72; RESP 16; TEMP 36.6; O2SAT 98
--- NOTE | 2020-11-13 11:52 | P.F2F_ITS ---
Service Date Service Date: 11/13/20 Encounter Date of encounter: 11/13/20 Reasons for Services Reason for [facility]: diabetic teaching and monitoring of unstable blood sugar MD Overseeing Care: Gapser Helms Homebound: Leaving the home is medically contraindicated at this time without the asist of a device and/or another person due th the listed conditions above and below. Reason homebound: weakness related to hospital stay Certification: Based on the above findings, I certify that this patient is confined to the home and needs intermittent [facility] care, physical therapy and/or speech therapy, or continues to need occupational therapy. The patient is under my care, and I have initiated the establishment of the plan of care. The patient will be followed by a physician who will periodically review the plan of care.
== END 2020-11-13 13:15 | disposition home health service (06) | DRG 638 ==
LOC: HO.ED 14:57 → HO.EDOVER 16:12 → HO.S3 17:37
PROVIDERS: Physician Assistant Medical; Admitting Provider Family Medicine; Emergency Provider Internal Medicine; PCP Internal Medicine; Visit Provider Family Medicine
DX: E11.65 Type 2 diabetes mellitus with hyperglycemia (principal); N17.9 Acute kidney failure, unspecified; I12.9 Hypertensive chronic kidney disease with stage 1 through stage 4 chronic kidney disease, or unspecified chronic kidney disease; F03.90 Unspecified dementia, unspecified severity, without behavioral disturbance, psychotic disturbance, mood disturbance, and anxiety; F39 Unspecified mood [affective] disorder; E78.5 Hyperlipidemia, unspecified; N18.32 Chronic kidney disease, stage 3b; E11.22 Type 2 diabetes mellitus with diabetic chronic kidney disease; K21.9 Gastro-esophageal reflux disease without esophagitis; Z20.822 Contact with and (suspected) exposure to COVID-19; Z86.73 Personal history of transient ischemic attack (TIA), and cerebral infarction without residual deficits; Z79.4 Long term (current) use of insulin; Z79.899 Other long term (current) drug therapy
CPT/HCPCS: 36415; 80048; 80076; 82009; 82947; 83036; 85025; 87635; 99285